=== PATIENT | male | born 1980 | race Caucasian/White ===

== ENCOUNTER 2024-01-08 12:39 | Emergency (ER) | payer SELFPAY ==
[2024-01-08 12:42] VITALS: BP 167/87; PULSE 101; RESP 16; TEMP 36.9; O2SAT 98
--- NOTE | 2024-01-08 13:01 | W.ED.GENAD ---
Discharge Plan Disposition Patient Disposition: Home Condition: Stable Discharge Details Clinical Impression: Dental infection Primary Care Provider: None,None ED Provider: Do Fisher Home Meds and New Rx's Prescriptions: New clindamycin HCl 150 mg capsule 450 mg PO TID 7 Days Qty: 63 0RF Continued ibuprofen 800 MG tablet 800 mg PO TID Qty: 30 0RF Discharge Instructions Instructions: Dental Pain ED Additional Instructions: Rinse mouth out with salt water after eating or drinking anything. Practice good oral hygiene, brush her teeth twice daily. Take antibiotics as directed with yogurt or a probiotic. Please take Tylenol or Ibuprofen with food every 4-6 hours as needed for pain and swelling. Use the topical HurriCaine gel as directed up to 3 times daily as needed to the area of pain. Please follow-up with a dentist, return to the ER or be seen sooner for any worsening swelling, trouble swallowing, drooling fever or any concerns. Referrals: Primary Care Provider [Outside] - 5 days HPI General Mode of arrival: ambulatory. Date/Time Provider Initiated Documentation: 01/08/24 12:52. Limitations to Documentation: no limitations. Information obtained by: patient, RN notes reviewed and old records reviewed. HPI Narrative: Patient reports long history of a left front broken tooth however couple days ago he noticed increased swelling and discomfort. He denies any fever chills speaking in full sentences no throat pain. He does have an appointment with his dentist but not for a couple of weeks. They encouraged him to be seen here. No area of fluctuance or drainable abscess noted on exam at this time Related Data Home Medications ?Medication ?Instructions ?Recorded ?Confirmed ibuprofen 800 mg tablet 800 mg PO TID ##30 02/24/13 01/08/24 clindamycin HCl 150 mg capsule 450 mg (3 x 150 mg) PO TID 7 days 01/08/24 #63 caps Previous Rx's ?Medication ?Instructions ?Recorded ibuprofen 800 mg tablet 800 mg PO TID ##30 02/24/13 clindamycin HCl 150 mg capsule 450 mg (3 x 150 mg) PO TID 7 days 01/08/24 #63 caps Allergies Allergy/AdvReac Type Severity Reaction Status Date / Time No Known Allergies Allergy Unverified 01/08/24 12:45 General Stated Complaint: DentalOral JASON: 4 Review of Systems All systems reviewed & are unremarkable except as noted in HPI and below ENT Ears, Nose, Mouth, and Throat: Reports as per HPI, Reports dental pain and Reports nose pain Exam HENMT Head: normal to inspection General nose exam: external nose normal Face and sinus: edema on the left mandible Teeth and gingiva: caries, gingiva abnormal diffusely erythematous and poor dentition Teeth image: 1. Broken tooth Throat: posterior oropharynx normal Course Vital Signs Vital signs: Vital Signs Temperature 36.9 C 01/08/24 12:42 Pulse 101 H 01/08/24 12:42 Respiratory Rate 16 01/08/24 12:42 Blood Pressure 167/87 H 01/08/24 12:42 Pulse Oximetry 98 01/08/24 12:42 Temperature 36.9 C 01/08/24 12:42 Pulse 101 H 01/08/24 12:42 Respiratory Rate 16 01/08/24 12:42 Respiratory Effort Normal 01/08/24 12:44 Blood Pressure 167/87 H 01/08/24 12:42 Pulse Oximetry 98 01/08/24 12:42 Pain Level 2 01/08/24 12:42 Medical Decision Making Patient reports long history of a left front broken tooth however couple days ago he noticed increased swelling and discomfort. He denies any fever chills speaking in full sentences no throat pain. He does have an appointment with his dentist but not for a couple of weeks. They encouraged him to be seen here. No area of fluctuance or drainable abscess noted on exam at this time Will give clindamycin here in the department and topical benzocaine gel and instructions on follow-up and oral care and strict return instructions if needed. Patient verbalized understanding, all his questions were answered to the best my ability. This text was generated using [employer] dictation system, please disregard any oddities of phrase or misspellings. Quality:SDOH Health Related Social Needs: No Data to Display PFSH All Active Problems (Updated 01/08/24 @ 13:10 by Do Fisher NP) Dental infection (Acute) Social History Smoking/Tobacco Use Status: Never Smoking risk assessment performed?: Yes Alcohol Intake: never Drug use: Never
[2024-01-08] MEDS: Clindamycin 150 MG CAP, 12 CAPS/BTL 450 MG PO (13:12)
[2024-01-08] MEDS: Clindamycin 150 MG CAP 450 MG PO (13:12)
[2024-01-08] MEDS: Benzocaine 20% Gel 30 GM JAR MM (13:12)
--- NOTE | 2024-01-09 09:04 | NUR.NOTE ---
Nursing Note: Pt called asking about his prescription. It was not sent electronically and the patient was unsure if he was given a paper prescription. When I described what a typical paper prescription looks like, he remembered seeing it and knew exactly where it was located. He apologized for calling and I told him it was completely fine. Instructed him to bring that paper prescription to which ever pharmacy he liked.
== END 2024-01-08 13:16 | disposition home or self-care (01) ==
PROVIDERS: Emergency Provider Registered Nurse Emergency
DX: K08.89 Other specified disorders of teeth and supporting structures (principal); K04.7 Periapical abscess without sinus
CPT/HCPCS: 99283